=== PATIENT | female | born 1950 | race Two or more races ===

== ENCOUNTER 2023-05-31 07:37 | Outpatient (CLI) | payer OTHER | END 2023-05-31 07:48 | disposition home or self-care (01) | LOC: RX STUDY 07:37 | PROVIDERS: ATTEND Internal Medicine | DX: R13.10 Dysphagia, unspecified (principal) ==

== ENCOUNTER 2024-05-12 07:21 | Outpatient (CLI) | payer OTHER | END 2024-05-12 07:27 | disposition home or self-care (01) | LOC: TOM 07:21 | PROVIDERS: ATTEND Internal Medicine Gastroenterology | DX: K56.609 Unspecified intestinal obstruction, unspecified as to partial versus complete obstruction (principal) ==